=== PATIENT | female | born 1995 | race Caucasian/White ===

== ENCOUNTER 2021-11-20 15:16 | Emergency (ER) | payer OTHER ==
[~2021-11-20] VITALS: Ht 129.5 cm; Wt 81.2 kg
[2021-11-20 15:31] VITALS: BP 127/74
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
--- NOTE | 2021-11-20 16:49 | NUR ---
XRAY AT BEDSIDE
[2021-11-20] MEDS ORDERED: IBUP-1842 PO (17:16)
[2021-11-20] MEDS ORDERED: KETOROLAC 30 MG/ML VIAL IM ONE (17:20)
[2021-11-20 18:06] VITALS: BP 126/74
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
--- NOTE | 2021-11-20 18:07 | NUR ---
The patient's care was reviewed and supervised by Cielo Tobin RN.
== END 2021-11-20 18:06 | disposition home or self-care (01) ==
LOC: MED 15:16
DX: S50.812A Abrasion of left forearm, initial encounter (principal); V49.88XA Car occupant (driver) (passenger) injured in other specified transport accidents, initial encounter; Y93.89 Activity, other specified; Y92.89 Other specified places as the place of occurrence of the external cause; Y99.8 Other external cause status
CPT/HCPCS: 73090; 96372; 99283; J1885; Q0092